=== PATIENT | male | born 1985 | race Caucasian/White ===

== ENCOUNTER 2022-02-03 18:15 | Emergency (ER) | payer MEDICAID ==
[~2022-02-03] VITALS: Ht 172.7 cm; Wt 74.8 kg
[2022-02-03 18:25] VITALS: BP 124/80
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
[2022-02-03] MEDS ORDERED: LIDOCAINE/EPI 2% 1:100000 20 ML VIAL INJ ONE (19:00)
--- NOTE | 2022-02-03 19:30 | NUR ---
ASSUMED CARE OF PT AT THIS TIME. PT IN POSITION OF COMFORT. AWAITING PROCEDURE OF SUTURES TO LEFT EYEBROW. DENIES ANY NEEDS AT THIS TIME.
[2022-02-03] MEDS ORDERED: ACET-9527 PO (20:34)
[2022-02-03] MEDS ORDERED: IBUP-2213 PO (20:34)
[2022-02-03] MEDS ORDERED: AMOX-1230 PO (20:34)
[2022-02-03] MEDS ORDERED: HYDROcodone/APAP 5/325 MG 1 TAB TAB PO ONE (20:55)
--- NOTE | 2022-02-03 21:00 | NUR ---
DR. RAY AT BEDSIDE FOR PROCEDURE TO LEFT EYEBROW AT THIS TIME.
[2022-02-03 21:19] VITALS: BP 122/75
--- NOTE | 2022-02-03 21:19 | NUR ---
Patient discharged with v/s stable. Written and verbal after care instructions given and explained. Patient alert, oriented and verbalized understanding of instructions. Ambulatory with steady gait. All questions addressed prior to discharge. ID band removed. Patient advised to follow up with PMD. Rx of NORCO 2-325, AMOXICILLIN, MOTRIN given. Patient educated on indication of medication including possible reaction and side effects. Opportunity to ask questions provided and answered.
== END 2022-02-03 21:19 | disposition home or self-care (01) ==
LOC: MED 18:15
DX: S01.112A Laceration without foreign body of left eyelid and periocular area, initial encounter (principal); Z79.899 Other long term (current) drug therapy; Y04.2XXA Assault by strike against or bumped into by another person, initial encounter; Y93.89 Activity, other specified; Y92.89 Other specified places as the place of occurrence of the external cause; Y99.8 Other external cause status
CPT/HCPCS: 12013; 70450; 70480; 99284

== ENCOUNTER 2022-02-10 19:39 | Emergency (ER) | payer MEDICAID ==
[~2022-02-10] VITALS: Ht 180.3 cm; Wt 77.1 kg
[~2022-02-10 19:39] MED LIST: ACET-9527 PO; AMOX-1230 PO; IBUP-2213 PO
[2022-02-10 19:57] VITALS: BP 112/75
--- NOTE | 2022-02-10 20:00 | NUR ---
TO [facility] A/W BED AMBULATORY
[2022-02-10 20:37] VITALS: BP 112/75
--- NOTE | 2022-02-10 20:37 | NUR ---
Patient discharged with v/s stable. Written and verbal after care instructions given and explained. Patient verbalized understanding. Ambulatory with steady gait. All questions addressed prior to discharge. Advised to follow up with PMD.
== END 2022-02-10 20:37 | disposition home or self-care (01) ==
LOC: MED 19:39
DX: S01.112D Laceration without foreign body of left eyelid and periocular area, subsequent encounter (principal); Z79.899 Other long term (current) drug therapy; X58.XXXD Exposure to other specified factors, subsequent encounter
CPT/HCPCS: 99281